=== PATIENT | female | born 1965 | race Caucasian/White ===

== ENCOUNTER → 2017-02-01 | Outpatient (CLI) | payer BC ==
[~2017-02-01] MED LIST: ZOLM5TAB8 PO
[2017-02-01 09:07] LABS: BLOOD UREA NITROGEN 13 mg/dL (7-18)
== END | disposition home or self-care (01) ==
LOC: STAR 07:41
PROVIDERS: ATTEND Surgery
DX: Z01.818 Encounter for other preprocedural examination (principal); D48.60 Neoplasm of uncertain behavior of unspecified breast
CPT/HCPCS: 36415; 80048

== ENCOUNTER 2017-02-08 09:11 | Day surgery (SDC) | payer BC ==
[~2017-02-08] VITALS: Ht 152.4 cm; Wt 58.2 kg
[~2017-02-08 09:11] MED LIST changes: +BUPIVACAINE/PF-EPI 0.25% 1:200K ONE
[2017-02-08 10:40] VITALS: BP 145/85
[2017-02-08] MEDS ORDERED: LACTATED RINGERS 1,000 ML IV SCH (10:43)
[2017-02-08] MEDS ORDERED: SODIUM BICARBONATE 4.2%, 5ML ONE (11:30)
[2017-02-08] MEDS ORDERED: LIDOCAINE 1%, 20ML ONE (11:30)
[2017-02-08] MEDS ORDERED: MIDAZOLAM 1 MG/ML, 2ML ONE (11:36)
[2017-02-08] MEDS ORDERED: FENTANYL PF 250 MCG/5ML ONE (11:36)
[2017-02-08] MEDS ORDERED: METOCLOPRAMIDE 5 MG/ML, 2ML IV PRN (12:00)
[2017-02-08] MEDS ORDERED: ALBUTEROL/IPRATROPIUM 2.5MG/0.5MG, 3 ML NPPB PRN (12:00)
[2017-02-08] MEDS ORDERED: OXYcodone 5 MG/5 ML ORAL.SOL UDC PO PRN (12:00)
[2017-02-08] MEDS ORDERED: PROMETHAZINE 25 MG/ML, 1ML IV PRN (12:00)
[2017-02-08] MEDS ORDERED: HYDROmorphone 1 MG/ML, 1ML IV PRN (12:00)
[2017-02-08] MEDS ORDERED: ONDANSETRON 2MG/ML, 2ML IVPush PRN (12:00)
[2017-02-08] MEDS ORDERED: MIDAZOLAM 1 MG/ML, 2ML IV PRN (12:00)
[2017-02-08] MEDS ORDERED: BUPIVACAINE/PF-EPI 0.25% 1:200K ONE (12:00)
[2017-02-08] MEDS ORDERED: FENTANYL PF 100 MCG/2ML IV PRN (12:00)
[2017-02-08] MEDS ORDERED: hydrALAzine 20 MG/ML, 1ML IV PRN (12:00)
[2017-02-08] MEDS ORDERED: LABETALOL 5MG/ML, 20ML IV PRN (12:00)
[2017-02-08] MEDS ORDERED: MEPERIDINE/PF 25MG/0.5ML IVPush PRN (12:00)
[2017-02-08] MEDS ORDERED: ACETAMINOPHEN 325 MG TABLET PO PRN (12:00)
[2017-02-08] MEDS ORDERED: ONDANSETRON 2MG/ML, 2ML ONE (12:15)
[2017-02-08] MEDS ORDERED: CEFAZOLIN 1,000 MG ONE (12:15)
[2017-02-08] MEDS ORDERED: DEXAMETHASONE 4 MG/ML, 1ML ONE (12:15)
[2017-02-08] MEDS ORDERED: PROPOFOL 10 MG/ML, 20ML ONE (12:15)
== END 2017-02-08 14:45 ==
LOC: CFH 09:11 → OUT 14:45
PROVIDERS: ATTEND Surgery
DX: D24.2 Benign neoplasm of left breast (principal); K21.9 Gastro-esophageal reflux disease without esophagitis; Z72.89 Other problems related to lifestyle
CPT/HCPCS: 19125; 19281; 88307; J0690; J1100; J2250; J2405; J2704; J3010; J3490; J7120

== ENCOUNTER → 2018-07-04 | Outpatient (CLI) | payer OTHER ==
[~2018-07-04] MED LIST changes: -BUPIVACAINE/PF-EPI 0.25% 1:200K ONE
== END | disposition home or self-care (01) ==
LOC: CFH 07:25
PROVIDERS: ATTEND Family Medicine
DX: Z12.31 Encounter for screening mammogram for malignant neoplasm of breast (principal); D24.2 Benign neoplasm of left breast
CPT/HCPCS: 77063; 77067

== ENCOUNTER → 2021-04-13 | Outpatient (CLI) | payer OTHER | END | disposition home or self-care (01) | LOC: CFH 14:10 | PROVIDERS: ATTEND Family Medicine | DX: Z12.31 Encounter for screening mammogram for malignant neoplasm of breast (principal) | CPT/HCPCS: 77063; 77067 ==